=== PATIENT | female | born 1940 | race Caucasian/White ===

== ENCOUNTER 2019-01-14 22:35 | Emergency (ER) | payer OTHER ==
[2019-01-14 22:53] LABS: ADD MAN DIFF? NO
[2019-01-14 22:54] LABS: BASOPHIL # 0.1 10^3/ul (0.0-0.1); BASOPHILS % 0.9 % (0.0-2.0); EOSINOPHILS # 0.5 10^3/ul (0.0-0.5); EOSINOPHILS % 4.4 % (0.0-7.0); HEMATOCRIT 42.2 % (37.0-47.0); HEMOGLOBIN 12.9 g/dl (12.0-16.0); LYMPHOCYTES # 2.8 10^3/ul (0.8-2.9); MEAN CORPUSCULAR HGB CONC 30.6 g/dl (32.0-37.0); MEAN CORPUSCULAR VOLUME 81.6 fl (82.0-101.0); MEAN PLATELET VOLUME 11.4 fl (7.4-10.4); MONOCYTE # 0.7 10^3/ul (0.3-0.9); NEUTROPHILS % 63.5 % (39.0-77.0); PLATELET COUNT 343 10^3/UL (140-415); RED BLOOD COUNT 5.17 10^6/ul (4.20-5.40); RED CELL DISTRIBUTION WIDTH 15.2 % (11.5-14.5)
[2019-01-14] MEDS: ONDANSETRON 4 MG INJ IV (22:55)
[2019-01-14] MEDS: morphine 4 MG/ML VIAL IV (22:55)
[2019-01-14] MEDS: NITROGLYCERIN 2% 1 GM OINT PKT TD (22:56)
[2019-01-14 23:12] LABS: ANION GAP 9 (5-13); BLOOD UREA NITROGEN 16 mg/dl (7-20); CALCIUM 9.7 mg/dl (8.4-10.2); CARBON DIOXIDE 28 mmol/L (21-31); CHLORIDE 101 mmol/L (97-110); CREATININE 1.03 mg/dl (0.44-1.00); GLUCOSE 233 mg/dl (70-220); POTASSIUM 4.1 mmol/L (3.5-5.1); SODIUM 138 mmol/L (135-144)
[2019-01-14 23:21] LABS: B-TYPE NATRIURETIC PEPTIDE 107 PG/ML (0-450)
[2019-01-14 23:25] LABS: TROPONIN-I < 0.012 ng/ml (0.000-0.120)
== END 2019-01-15 02:42 | disposition short-term general hospital (02) ==
LOC: E/R 22:35
DX: R07.9 Chest pain, unspecified (principal); E66.01 Morbid (severe) obesity due to excess calories; I10 Essential (primary) hypertension; I25.10 Atherosclerotic heart disease of native coronary artery without angina pectoris
CPT/HCPCS: 36415; 71045; 80048; 83880; 84484; 85025; 93005; 96374; 96375; 99285-25